=== PATIENT | female | born 1980 | race Caucasian/White ===

== ENCOUNTER 2016-07-23 17:29 | Emergency (ER) | payer OTHER ==
[2016-07-23] MEDS ORDERED: Penicillin VK TAB* 250 MG PO ONE (18:08)
[2016-07-23] MEDS ORDERED: Ketorolac INJ* 60 MG/2 ML VIAL IM ONE (18:08)
[2016-07-23 18:28] VITALS: BP 148/88
--- NOTE | 2016-07-23 18:49 | ED ---
Throat Pain/Nasal Congestion - HPI Summary HPI Summary: Patient presents with right upper molar pain that began 5 days ago. She broke her this tooth approximately 6 months and has not had an issue with it until this week. She has tried to manage her pain with "chewing Tylenol", hoping it would "get into the crack", but has not gotten relief. She feels that the right side of her face is now swollen and her pain is increasing. She denies MAYS, fever , chills or ear pain. She us in recovery and makes it clear she does not want any narcotics. - History of Current Complaint Chief Complaint: EDDentalPain Time Seen by Provider: 07/23/16 17:44 Hx Obtained From: Patient, Family/Rivet Passer Onset/Duration: Gradual Onset Severity: Severe Associated Signs And Symptoms: Positive: Negative Cough: None Related History: Smoking - Allergies/Home Medications Allergies/Adverse Reactions: Allergies Allergy/AdvReac Type Severity Reaction Status Date / Time No Known Allergies Allergy Verified 07/23/16 17:40 PMH/Surg Hx/FS Hx/Imm Hx Psychiatric History: Reports: Hx Substance Abuse Infectious Disease History: No Infectious Disease History: Denies: Traveled Outside the [place] in Last 30 Days - Family History Known Family History: Positive: None - Social History Occupation: Unemployed Lives: With Family Alcohol Use: Rare Substance Use Type: Reports: None Smoking Status (MU): Light Every Day Tobacco Smoker Review of Systems Negative: Fever, Chills Positive: Dental Pain. Negative: Sore Throat, Ear Ache Negative: Shortness Of Breath Negative: Headache All Other Systems Reviewed And Are Negative: Yes Physical Exam Triage Information Reviewed: Yes Vital Signs On Initial Exam: Initial Vitals Temp Pulse Resp Pulse Ox 97.2 F 75 20 100 07/23/16 17:38 07/23/16 17:38 07/23/16 17:38 07/23/16 17:38 Vital Signs Reviewed: Yes Appearance: Positive: Well-Appearing, Pain Distress, Obese Skin: Positive: Warm, Skin Color Reflects Adequate Perfusion, Dry, Soft Head/Face: Positive: Normal Head/Face Inspection Eyes: Positive: EOMI, MARK, Conjunctiva Clear ENT: Positive: Hearing grossly normal, Pharynx normal. Negative: Tonsillar swelling Dental: Positive: Gross Decay/Caries @ - right upper molar, Dental Fracture @ - right upper molar. Negative: Abscess @ Neck: Positive: Supple, Nontender, No Lymphadenopathy Respiratory/Lung Sounds: Positive: Clear to Auscultation, Breath Sounds Present Cardiovascular: Positive: RRR Neurological: Positive: Sensory/Motor Intact, Alert, Oriented to Person Place, Time, NV Bundle Intact Distally, Normal Gait Psychiatric: Positive: Affect/Mood Appropriate AVPU Assessment: Alert Diagnostics - Vital Signs Vital Signs Temp Pulse Resp BP Pulse Ox 07/23/16 18:24 97.2 F 75 20 148/88 100 07/23/16 17:38 97.2 F 75 20 100 - Laboratory Lab Statement: Any lab studies that have been ordered have been reviewed, and results considered in the medical decision making process. EENT Course/Dx - Differential Diagnoses Differential Diagnoses: Dental Abscess, Dental Caries, Fractured Tooth, Gingivitis, Mastoiditis, Odontogenic Pain, Periodontic Abscess, Periodontic Disease - Diagnoses Provider Diagnoses: Dental infection Discharge - Discharge Plan Condition: Stable Disposition: HOME Prescriptions: Ibuprofen TAB* [Motrin TAB* 600 MG] 600 mg PO Q6H PRN #60 tab PRN Reason: Pain Penicillin VK TAB 500 MG(NF) [Penicillin VK 500 mg Tab(NF)] 500 mg PO QID #39 tab Patient Education Materials: Toothache (ED) Referrals: Bala Jones MD [Primary Care Provider] - Additional Instructions: Please take the antibiotic as prescribed until it's completely gone. Begin using 600mg of ibuprofen 3-4 times daily with meals tomorrow evening due to your injection today. Use this until your pain resolves. Follow-up with your primary care provider if symptoms persist and attempt to make contact with one of the dentist on the provided lists. Return to the emergency department if symptoms worsen.
== END 2016-07-23 18:42 | disposition home or self-care (01) ==
LOC: ED 17:29
DX: K04.7 Periapical abscess without sinus (principal); K08.89 Other specified disorders of teeth and supporting structures; F17.210 Nicotine dependence, cigarettes, uncomplicated
CPT/HCPCS: 96372; 99282; A9270-GY; J1885

== ENCOUNTER 2019-06-16 15:01 | Emergency (ER) | payer OTHER ==
[2019-06-16 15:05] VITALS: BP 133/90
[2019-06-16] MEDS ORDERED: Acetaminophen TAB* 325 MG PO ONE (16:03)
--- NOTE | 2019-06-17 05:55 | ED ---
Upper Extremity Pain - HPI Summary HPI Summary: This patient is a 39-year-old otherwise healthy female presenting to the ED after a slip and fall on the ice yesterday. She said she felt are clear over her right shoulder. She heard a "pop" and has been unable to move the shoulder since that time. Denies any other injuries. She denies hitting her head or LOC. Denies any use of blood thinners. Pain is rated a 0/10 at rest, 5/10 with attempted movement. Denies numbness or tingling. Denies color or temperature changes to the hand. - History of Current Complaint Chief Complaint: EDExtremityUpper Stated Complaint: FALL-RIGHT SHOULDER/ARM PAIN PER PT Time Seen by Provider: 06/16/19 15:59 Mechanism Of Injury: Direct Blow Onset/Duration: Started Hours Ago Timing: Constant Severity Initially: Mild Severity Currently: Mild Pain Location: Shoulder Character: Aching Aggravating Factor(s): Movement, Lifting, Flexion Alleviating Factor(s): Rest Associated Signs & Symptoms: Negative: Swelling, Redness, Bruising Related History: Dominant Hand Right - Risk Factors Non-Orthopedic Risk Factor: Negative DVT Risk Factors: Negative Septic Arthritis Risk Factor: Negative Compartment Syndrome Risk Factors: Pain - Allergies/Home Medications Allergies/Adverse Reactions: Allergies Allergy/AdvReac Type Severity Reaction Status Date / Time No Known Allergies Allergy Verified 06/16/19 15:05 Home Medications: Home Medications Ibuprofen TAB* [Motrin TAB* 600 MG] 600 mg PO Q6H PRN #60 tab 07/23/16 [Rx] Penicillin VK 500 MG TAB(NF) [Penicillin VK 500 mg Tab] 500 mg PO QID #39 tab [Rx] PMH/Surg Hx/FS Hx/Imm Hx Previously Healthy: Yes Psychiatric History: Reports: Hx Substance Abuse - Immunization History Hx Pertussis Vaccination: No Immunizations Up to Date: Yes Infectious Disease History: No Infectious Disease History: Denies: Traveled Outside the [place] in Last 30 Days - Family History Known Family History: Positive: None - Social History Occupation: Employed Full-time Lives: With Family Alcohol Use: Rare Hx Substance Use: No Substance Use Type: Reports: None Hx Tobacco Use: Yes Smoking Status (MU): Light Every Day Tobacco Smoker Review of Systems Negative: Fever, Chills, Fatigue, Skin Diaphoresis Negative: Palpitations, Chest Pain Negative: Shortness Of Breath, Cough Genitourinary: Negative Positive: no symptoms reported, see HPI Positive: Arthralgia - right shoulder pain - anterior. Negative: Myalgia Negative: Rash, Bruising All Other Systems Reviewed And Are Negative: Yes Physical Exam Triage Information Reviewed: Yes Vital Signs On Initial Exam: Initial Vitals Temp Pulse Resp BP Pulse Ox 97.8 F 104 18 133/90 97 06/16/19 15:02 06/16/19 15:02 06/16/19 15:02 06/16/19 15:02 06/16/19 15:02 Completion Of Physical Exam Limited Due To: Dementia Appearance: Positive: Well-Appearing, Well-Nourished Skin: Positive: Warm, Skin Color Reflects Adequate Perfusion Head/Face: Positive: Normal Head/Face Inspection Eyes: Positive: EOMI, Conjunctiva Clear Neck: Positive: No Lymphadenopathy Respiratory/Lung Sounds: Positive: Clear to Auscultation, Breath Sounds Present Cardiovascular: Positive: Pulses are Symmetrical in both Upper and Lower Extremities Musculoskeletal: Positive: Pain @ - to the anterior R shoulder with limited ROM Neurological: Positive: Speech Normal Psychiatric: Positive: Normal, Affect/Mood Appropriate Procedures - Sedation Patient Received Moderate/Deep Sedation with Procedure: No Diagnostics - Vital Signs Vital Signs Temp Pulse Resp BP Pulse Ox 06/16/19 17:41 97.8 F 104 16 133/90 97 06/16/19 15:02 97.8 F 104 18 133/90 97 - Laboratory Lab Statement: Any lab studies that have been ordered have been reviewed, and results considered in the medical decision making process. Course/Dx - Course Course Of Treatment: This shows a Hill-Sachs fracture. This patient is evaluated for R shoulder injury. Denies neck pain or head pain. Unable to move d/t pain. Xray obtained of shoulder: On reexamination after Tylenol was given, pt has improved movement. Sling given. Ortho referral. - Diagnoses Differential Diagnosis/HQI/PQRI: Positive: Strain, Sprain Provider Diagnoses: Hill-Sachs fracture Discharge ED - Sign-Out/Discharge Documenting (check all that apply): Patient Departure - Discharge Plan Condition: Stable Disposition: HOME Referrals: Bala Jones MD [Primary Care Provider] - Bonnie Rdz MD [Medical Doctor] - Additional Instructions: You have a small hill sachs fracture of the shoulder Please keep the splint applied for comfort Follow up with orthopedics - Billing Disposition and Condition Condition: STABLE Disposition: Home
== END 2019-06-16 17:41 | disposition home or self-care (01) ==
LOC: ED 15:01
DX: S42.294A Other nondisplaced fracture of upper end of right humerus, initial encounter for closed fracture (principal); W00.0XXA Fall on same level due to ice and snow, initial encounter; Y92.9 Unspecified place or not applicable; F17.200 Nicotine dependence, unspecified, uncomplicated
CPT/HCPCS: 99282; A9270-GY